=== PATIENT | male | born 1955 | race Caucasian/White ===

== ENCOUNTER 2016-07-12 10:26 | Observation (INO) | payer OTHER, MEDICARE ==
[~2016-07-12] VITALS: Ht 172.7 cm; Wt 87.2 kg
[2016-07-12] VITALS (10 sets, daily range): BP systolic 118–153; BP diastolic 77–98; PULSE 57–79; RESP 14–20; O2SAT 94–99
[~2016-07-12 10:26] MED LIST: GABA300C PO; MELO7.5T13 PO; NICOTINE PATCH; OXYC7.5T PO; ProAirHFA INH; TIZA4TABA PO; VICODIN 5-3251 EACH PO; ZES5
[2016-07-12] MEDS ORDERED: 0.9% Sodium Chloride 1,000 ML IV ONE (10:54)
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
[2016-07-12] MEDS ORDERED: Ondansetron 2 mg/mL 2 mL Inj IVPUSH ONE (10:55)
[2016-07-12 11:15] LABS: BASOPHILS % (AUTO) 0.4 % (0-3); EOSINOPHILS % (AUTO) 2.1 % (0-5); MONOCYTES % (AUTO) 6.5 % (4-12); Mean Corpuscular Hemoglobin 32.1 pg (27.0-35.0); NEUTROPHILS % (AUTO) 73.4 % (40-74); Platelet Count 266 bil/L (150-400)
--- NOTE | 2016-07-12 11:32 | DRSVH ---
PROCEDURE: X-RAY CHEST ONE VIEW, PORTABLE ([id number]) INDICATIONS: chest pain TECHNIQUE: One view of the chest was acquired. COMPARISON: None. FINDINGS: Surgical changes and devices: None. Lungs and pleura: No pleural effusions or pneumothorax. Lungs are clear of acute opacities. Left ba silar parenchymal scarring noted. Small calcified granuloma noted in the left midlung. Mediastinum: Mediastinal contours appear normal. Heart size is normal. Bones and chest wall: No suspicious bony lesions. Overlying soft tissues appear unremarkable. IMPRESSION: No acute cardiopulmonary disease process. Dictated by: Ct Wilson MD, PhD on 07/12/2016 at 11:25 Approved by: Ct Wilson MD, PhD on 07/12/2016 at 11:30
[2016-07-12 11:39] LABS: TROPONIN T 0.01 ug/L (0.0-0.011)
[2016-07-12 11:50] LABS: Magnesium 2.1 mg/dL (1.6-2.6)
[2016-07-12] MEDS ORDERED: Polyethylene Glycol (PEG) 17 Gm Powder PO PRN (13:15)
[2016-07-12] MEDS ORDERED: Alum-Mag Hydrox-Simeth 30 mL Suspension PO PRN (13:15)
[2016-07-12] MEDS ORDERED: Senna-Docusate 8.6-50 mg Tablet PO PRN (13:15)
[2016-07-12] MEDS ORDERED: Ondansetron 2 mg/mL 2 mL Inj IVPUSH PRN (13:15)
[2016-07-12] MEDS ORDERED: Atropine 1 mg/10 mL (Code) Syringe IVPUSH PRN (13:15)
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
[2016-07-12] MEDS: Sodium Chloride LOK Flush 10 mL Syringe IVFLUSH SCH (14:41)
[2016-07-12] MEDS: 0.9% Sodium Chloride 1,000 ML IV SCH (14:41)
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
[2016-07-12 20:08] LABS: Creatine Kinase 65 U/L (21-232)
[2016-07-12 20:10] LABS: TROPONIN T < 0.010 ug/L (0.0-0.011)
[2016-07-13 00:17] VITALS: BP 107/65; PULSE 66; RESP 20; O2SAT 95
[2016-07-13] MEDS: Sodium Chloride LOK Flush 10 mL Syringe IVFLUSH SCH ×2 (00:30→08:18)
--- NOTE | 2016-07-13 01:09 | NUR ---
MEDS Pt refused all medications, reviewed medications with pt and use and need for med. Pt states he has taken them before and does not wish to take any medications. Pt will review medications with the physician in the AM
[2016-07-13] MEDS: 0.9% Sodium Chloride 1,000 ML IV SCH ×2 (02:38→14:11)
[2016-07-13 03:46] LABS: BASOPHILS % (AUTO) 0.4 % (0-3); EOSINOPHILS % (AUTO) 4.6 % (0-5); MONOCYTES % (AUTO) 7.8 % (4-12); Mean Corpuscular Hemoglobin 31.8 pg (27.0-35.0); Mean Corpuscular Volume 93.8 fL (81-100); NEUTROPHILS % (AUTO) 59.8 % (40-74); Platelet Count 251 bil/L (150-400)
[2016-07-13 04:02] VITALS: BP 132/90; PULSE 66; RESP 20; O2SAT 98
[2016-07-13 08:10] VITALS: BP 128/91; PULSE 63; RESP 20; O2SAT 97
--- NOTE | 2016-07-13 13:21 | NUR ---
Cardiac/Meds/Discharge Pt denies CP/pressure. Tele SR 60s, per groundwater monitoring technician. Denies dizziness/lightheadedness at rest or when up walking. Stress test completed, per it was normal, pt to d/c home this afternoon. Pt refused all morning medications, MD aware. VSS. Addendum: 07/13/16 at 1347 by LYDIA KNIGHT RN D/C teaching complete, pt denies questions. Addendum: 07/13/16 at 1425 by LYDIA KNIGHT RN Pt d/c'd home with at 1424, preferred to ambulate out, declined w/c. All belongings sent with pt at time of d/c.
--- NOTE | 2016-07-13 13:29 | PCM.DIMED ---
Discharge Instructions Date of Service Jul 13, 2016 Dates of Hospitalization Jul 12, 2016 at 13:59 Discharge Diagnosis Discharge Diagnosis Some dizziness and chest pain noncardiac Test Results Stress Myoview test was normal 07/13 Diet No restrictions Activity No restrictions Call your provider Chest pain Patient Instructions I would normally say go see her doctor at some point but we do not like doctors and I see no absolute indication at this point time you need to go. If the dizziness gets worse perhaps physical therapy, check her blood pressures laying down and sitting up and standing and see if it drops. Attending's Statement Patient does not have a primary care provider and does not like doctors and at this point in time I see no indication that he needs one Grupo Peterson MD Jul 13, 2016 13:29
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
--- NOTE | 2016-07-13 13:38 | NUR ---
Social Work Note: Initial Assessment/Discharge Data& Assessment: EMR reviewed. Nicholas Zapata is a 61 year old male under observation for chest pain/high risk unstable angina. Per MD pt is medically improved and ready to discharge home. RICKI met with pt at bedside to confirm discharge plan and assess for any unmet needs. Pt has [employer] and Medicare insurance coverage. Pt does not have a PCP and prefers to not see a provider. Pt explained " I haven't found anyone that I believe...I am trusting God." Pt lives in [place] with his spouse and is independent at baseline with all ADL's. Pt uses a cane occasionally when his knee causes him pain. Pt does not have HH or SNF hx. Pt does not have LTC insurance or VA benefits. Pt declined DPOA paperwork. Pt explained his is coming to transport him home and denies any other needs. Plan: Per MD pt is medically improved and ready to discharge home via POV. Pt explained his is coming to transport him home and denies any other needs. No other discharge needs identified. RUTHIE Mccall Addendum: 07/13/16 at 1343 by CHRISTOPHER HILL Amended: Links added.
--- NOTE | 2016-07-13 13:49 | DRSVH ---
PROCEDURE: 1 DAY TREADMILL STRESS TEST Rest and exercise myocardial perfusion SPECT with gated imaging and ejection fraction RADIOPHARMACEUTICAL: 9.22 mCi Tc-99m tetrofosmin IV at rest and 26.3 mCi Tc-99m tetrofosmin IV at pe ak exercise. [id number] was performed. INDICATIONS: CHEST PAIN TECHNIQUE: Radiopharmaceutical was injected at peak stress test, and also at rest. SPECT images wer e obtained. SPECT myocardial perfusion images were displayed in short axis, horizontal long axis, an d vertical long axis views. Gated images were reviewed using [employer] software. COMPARISON: None. CARDIAC STRESS: A standard Sinan treadmill exercise tolerance test was performed by the patient unde r the supervision of an attending staff. The patient exercised for 12 minutes and 01 seconds; functi onal aerobic impairment (JANAE) is -38%. Hemodynamic data: There is normal blood pressure and heart rate response to exercise stress. Sendyen t achieved 103% of maximum predicted heart rate at peak exercise. Symptoms: Patient denied chest pain during exercise. EKG: No diagnostic EKG changes of ischemia; occasional PVCs. FINDINGS: Raw data: There is good myocardial labeling by radiotracer. No significant motion artifacts. Left ventricular function: Gated images demonstrate normal left ventricular wall thickening. No seg mental wall motion abnormality. The left ventricular resting end-diastolic volume is 96 mL. Left ve ntricular stress ejection fraction is 66%; normal values are above 45%. Myocardial perfusion: There is normal distribution of activity in the left and right ventricular amaury cardium. No fixed or reversible perfusion defects. IMPRESSION: 1. This is a low risk myocardial perfusion study. There are no significant findings that would sugge st prior infarct or presence of ischemia. LVEF and LV wall motion are both normal. Patient performe d well on treadmill study and there were no EKG changes, concerning for ischemia or for angina. Dictated by: Jason Santoyo Jr., M.D. on 07/13/2016 at 12:51 Transcribed by: BOOM on 07/13/2016 at 16:49 Approved by: Jason Santoyo Jr., M.D. on 07/21/2016 at 16:36
== END 2016-07-13 14:40 | disposition home or self-care (01) ==
LOC: SED 10:26 → PCC 13:59
PROVIDERS: ADMIT Hospitalist; ATTEND Hospitalist
DX: R07.89 Other chest pain (principal); R42 Dizziness and giddiness; I10 Essential (primary) hypertension; J44.9 Chronic obstructive pulmonary disease, unspecified; G47.30 Sleep apnea, unspecified; G89.29 Other chronic pain; F17.210 Nicotine dependence, cigarettes, uncomplicated; F10.10 Alcohol abuse, uncomplicated; F12.90 Cannabis use, unspecified, uncomplicated
CPT/HCPCS: 36415; 71010; 78452; 80048; 80053; 80061; 82550; 82553; 82948; 83036; 83735; 83880; 84443; 84484; 85025; 87804; 93005; 93017; 96361; 96372; 96374; 96375; 99285; A9502; G0378; J1650; J2270; J2405; J7030